=== PATIENT | male | born 1965 | race Caucasian/White ===

== ENCOUNTER 2019-01-09 17:22 | Emergency (ER) | payer SELFPAY ==
[~2019-01-09] VITALS: Ht 176 cm; Wt 68.8 kg
--- NOTE | 2019-01-09 18:25 | ED Fall/Injury ---
General Chief Complaint: Laceration Stated Complaint: FALL/FACIAL LAC Nursing Triage Note: Patient reports he slipped on a piece of wood and fell in the garage around 1715, states he hit his head on a toolbox, laceration present above left eye. Patient denies loss of consciousness, vision changes, headache. Source: patient Exam Limitations: no limitations History of Present Illness Date Seen by Provider: Jan 09, 2019 Time Seen by Provider: 18:00 Initial Comments The pt is a pleasant 53 y/o male who states he tripped and fell, hitting his face on a piece of wood on his garage floor. He has an abrasion to the nose and a laceration to the left medial eyebrow. He denies LOC, headache, neck pain, focal weakness/numbness, vision change, cp, sob, n/v, back pain, or dizziness. He is A&Ox4, calm, and appears to be in NAD. The injury took place approx 30 min [employer]. He is not anticoagulated. There is no active bleeding upon arrival. He denies facial/nasal pain upon arrival. Occurred: other (30 min [employer]) Severity: mild Context: tripped Loss of Consciousness: no loss of consciousness Associated Symptoms (Fall): Denies Symptoms Allergies and Home Medications Allergies Coded Allergies: No Known Drug Allergies (Unverified , 01/09/19) Patient Home Medication List Home Medication List Reviewed: Yes Review of Systems Review of Systems Constitutional: no symptoms reported Eyes: No Symptoms Reported Ears, Nose, Mouth, Throat: see HPI (laceration to left medial eyebrow, nasal abrasion) Respiratory: cough, orthopnea Cardiovascular: chest pain, edema Gastrointestinal: no symptoms reported, constipation, diarrhea, nausea Genitourinary: decreased output, dysuria, nocturia Musculoskeletal: back pain Skin: change in color Psychiatric/Neurological: No Symptoms Reported, See HPI, Anxiety All Other Systems Reviewed Negative Unless Noted: Yes Past Usvrftm-Wbzhgq-Heubwh Hx Past Med/Social Hx: Reviewed Nursing Past Med/Soc Hx Patient Social History Recent Foreign Travel: No Contact w/Someone Who Travel: No Recent Infectious Disease Expo: No Physical Exam Vital Signs Vital Signs - First Documented 01/09/19 17:30 Temp 36.9 Pulse 65 Resp 18 B/P (MAP) 140/84 (102) Pulse Ox 98 O2 Delivery Room Air Capillary Refill : Less Than 3 Seconds Height, Weight, BMI Height: '" Weight: lbs. oz. kg; 22.00 BMI Method: General Appearance: WD/WN, no apparent distress HEENT: PERRL/EOMI, normal ENT inspection, pharynx normal, other (laceration to left medial eyebrow, horizontal, approx 2cm, no bleeding, nasal abrasion approx 1cm in length - vertical) Gastrointestinal: normal bowel sounds, non tender, soft Back: normal inspection, no vertebral tenderness Extremities: normal range of motion, non-tender Neurologic/Psychiatric: cigar head pegger II-XII nml as tested, no motor/sensory deficits, alert, oriented x 3 Skin: normal color, warm/dry Ayr Coma Score Best Eye Response: (4) Open Spontaneously Best Verbal Response: (5) Oriented Best Motor Response: (6) Obeys Commands Procedures/Interventions Wound Location: Face Other Wound Location left medial eyebrow Wound Length (cm): 1.5 Wound's Depth, Shape: superficial, linear Wound Explored: clean Irrigated w/ Saline (ccs): 250 Other Closure Supply: Steri Strip 03/08", Wound Adhesive Progress Pt given choice of suture repair or skin adhesive with steri-strips, rationale for both, risks and benefits. Pt elects tissue adhesive and steri-strips. Pt tolerated the repair well. Good wound margin approximation. No complications. Progress/Results/Core Measures Results/Orders My Orders Orders - ZULEYMA SILVA Pertuss([facility]cell),Tet Adult ([employer] (01/09/19 18:30) Vital Signs/I&O 01/09/19 17:30 Temp 36.9 Pulse 65 Resp 18 B/P (MAP) 140/84 (102) Pulse Ox 98 O2 Delivery Room Air Blood Pressure Mean: 102 POS Progress Progress Note : Progress Note @0620 - Pt tolerated repair well, has no other complaints. Advised pt to keep wound clean and dry and to return for any new or worsening symptoms. Pt to f/u with his PCP in 2-3 days. Departure Impression Primary Impression: Laceration of eyebrow, left Additional Impression: Nasal abrasion Disposition: HOME, SELF-CARE Condition: Stable Departure-Patient Inst. Decision time for Depature: 18:27 Referrals: NO,LOCAL PHYSICIAN (PCP) Primary Care Physician [facility] Patient Instructions: Laceration Repair With Glue (DC), Skin Abrasions (DC) Add. Discharge Instructions: Follow up with your doctor in 2-3 days for a wound check. Leave the steri-strips alone, they will fall off in a few days. Return to the ER immediately if the wound opens, or for new or worsening symptoms. Keep the wound clean and dry. You were given a tetanus shot today and should let your doctor know. ZULEYMA SILVA DO Jan 09, 2019 18:25 POS
[2019-01-09] MEDS ORDERED: TETANUS,DIPTH,PERTUSS P/F (BOOSTRIX) 0.5 ML VIAL IM ONE (18:30)
[2019-01-09 18:49] VITALS: BP 140/84
== END 2019-01-09 18:56 | disposition home or self-care (01) ==
LOC: ER FS 17:24
DX: S01.112A Laceration without foreign body of left eyelid and periocular area, initial encounter (principal); S00.31XA Abrasion of nose, initial encounter; R40.2142 Coma scale, eyes open, spontaneous, at arrival to emergency department; R40.2252 Coma scale, best verbal response, oriented, at arrival to emergency department; R40.2362 Coma scale, best motor response, obeys commands, at arrival to emergency department; W01.198A Fall on same level from slipping, tripping and stumbling with subsequent striking against other object, initial encounter
CPT/HCPCS: 90715